=== PATIENT | male | born 1970 | race Caucasian/White ===

== ENCOUNTER 2016-09-25 17:37 | Emergency (ER) | payer OTHER ==
[~2016-09-25] VITALS: Ht 190.5 cm; Wt 121.7 kg
[2016-09-25 17:42] VITALS: TEMP 36.8; Ht 190.5 cm; Wt 121.7 kg
[2016-09-25] MEDS ORDERED: MULT-106 PO (18:18)
[2016-09-25] MEDS ORDERED: GLIP5TAB11 PO (18:18)
[2016-09-25] MEDS ORDERED: ATOR-24 PO (18:18)
[2016-09-25] MEDS ORDERED: METF-841 PO (18:18)
[2016-09-25] MEDS ORDERED: LOSA50TA54 PO (18:18)
[2016-09-25] MEDS ORDERED: IBUPROFEN 800 MG TAB PO STA (18:23)
--- NOTE | 2016-09-25 19:16 | DIAGNOSTIC IMAGING REPORT ---
RIGHT FOOT 3 VIEWS CLINICAL HISTORY: Fall with right lateral foot pain and swelling. FINDINGS: 3 views of the right foot are obtained. No prior studies are available for comparison at the time of dictation. The skeletal structures are well mineralized. There is an age indeterminant distracted avulsion fracture at the base of the fifth metatarsal with overlying soft tissue edema. No additional fracture is seen. The joint spaces of the foot are well-maintained. Degenerative spurring is seen along the dorsal aspect of the tarsal bones. There is a large os trigonum, and a large plantar calcaneal enthesophyte is noted. IMPRESSION: There is an age indeterminant avulsion fracture at the base of the fifth metatarsal with overlying soft tissue edema. Although the fragment appears corticated, this is likely acute given the location of the patient's pain Electronically signed by: Mack Perez M.D. 09/25/2016 7:15 PM Dictated Date/Time: 09/25/2016 7:12 PM
--- NOTE | 2016-09-25 19:38 | EMERGENCY ROOM VISIT NOTE ---
ED Visit Note First contact with patient: 18:07 CHIEF COMPLAINT: Foot pain HISTORY OF PRESENT ILLNESS: This 46-year-old male patient presents to the emergency department strict complaining of swelling and pain in the lateral right foot after an injury today. The patient states that he was spotting for gymnastics and stepped off the edge of the mat onto a lower level, he estimates approximately 2 feet, landing on the outside of his foot with immediate pain. The patient rates the pain as aching and 8/10. The patient has not taken any medication for relief of the pain. The patient is able to walk, but states this greatly increases the pain. No numbness or weakness. No knee or ankle pain. There are no lacerations of the foot. The patient is able to move all of their toes and their ankle without pain. No previous fracture to this foot. REVIEW OF SYSTEMS: GENERAL: A 6 system review of systems was completed with positives and pertinent negatives in the HPI. ALLERGIES: See chart MEDICATIONS: See chart PMH: See chart SOCIAL HISTORY: See chart PHYSICAL EXAM: Vital Signs: Reviewed Nurse's notes, vital signs stable. GENERAL : Pleasant and cooperative, in no acute distress, but appears in pain, well- developed, well-nourished. MUSCULOSKELATAL: There is no visual deformity of the right lateral foot. There is no erythema and no ecchymosis. There is no warmth. There is tenderness and swelling over the lateral aspect of the right foot corresponding to the proximal fifth metatarsal. There is no tenderness over the lateral or medial malleolus. No tenderness of the tib/fib. The range of motion of the right foot is slightly limited secondary to pain. There is no tenderness over the plantar fascia. The skin is intact and there are no lacerations or puncture wounds. Dorsalis pedis pulse 2+. Capillary refill less than 2 seconds. IMAGING: RIGHT FOOT 3 VIEWS CLINICAL HISTORY: Fall with right lateral foot pain and swelling. FINDINGS: 3 views of the right foot are obtained. No prior studies are available for comparison at the time of dictation. The skeletal structures are well mineralized. There is an age indeterminant distracted avulsion fracture at the base of the fifth metatarsal with overlying soft tissue edema. No additional fracture is seen. The joint spaces of the foot are well-maintained. Degenerative spurring is seen along the dorsal aspect of the tarsal bones. There is a large os trigonum, and a large plantar calcaneal enthesophyte is noted. IMPRESSION: There is an age indeterminant avulsion fracture at the base of the fifth metatarsal with overlying soft tissue edema. Although the fragment appears corticated, this is likely acute given the location of the patient's pain EMERGENCY DEPARTMENT COURSE: I examined the patient. Differential diagnosis includes fracture, dislocation, sprain/strain, contusion. An X-ray of the right foot was reviewed by myself and radiologist and reveals probable acute avulsion fracture of the proximal fifth metatarsal. By my read, there may also be a hairline fracture through the proximal end of the fifth metatarsal. The patient was placed in a postop shoe and instructed on the use of crutches. Patient was provided with referral and contact information for orthopedics and instructed to follow-up. The patient was discharged home in good condition. Medication Reconciliation: I attest that I have personally reviewed the patient' s current medication list. Blood pressure screening: The patient was found to have an elevated blood pressure and was referred to their primary doctor for recheck and further treatment. Current/Historical Medications Scheduled Atorvastatin (Lipitor), 40 MG PO DAILY Glipizide (Glucotrol), 5 MG PO BID Losartan Potassium (Cozaar), 50 MG PO DAILY Metformin HCl (Metformin HCl ER), 1,000 MG PO BID Multiple Vitamins W/ Minerals (One Daily Mens), 1 TAB PO DAILY Allergies Coded Allergies: No Known Allergies (Unverified , 09/25/16) Vital Signs Date Time Temp Pulse Resp B/P (MAP) Pulse Ox O2 Delivery O2 Flow Rate FiO2 09/25/16 20:05 80 18 130/86 96 09/25/16 17:42 36.8 91 18 140/93 95 Room Air Medications Administered Medications (Trade) Dose Ordered Sig/Shannon Route Start Time Stop Time Status Last Admin Dose Admin Ibuprofen (Motrin Tab) 800 mg NOW STAT PO 09/25/16 18:23 09/25/16 18:25 DC 09/25/16 18:23 800 MG Departure Information Impression Primary Impression: Fracture of fifth metatarsal bone of right foot Dispostion Home / Self-Care Condition GOOD Referrals Chaka Black D.O. Patient Instructions My [facility] [employer] Additional Instructions Ice and elevation for the next 48 hrs. Ibuprofen 600mg and Tylenol 1000 mg every 6-8 hours for the pain. Avoid weight bearing and use crutches and post-op shoe until the pain subsides and you can walk without a limp. Follow up with the orthopedic surgeon in the next week for further management of your fracture. Problem Qualifiers Primary Impression: Fracture of fifth metatarsal bone of right foot Encounter type: initial encounter Fracture type: closed Fracture alignment : nondisplaced Qualified Codes: S92.354A - Nondisplaced fracture of fifth metatarsal bone, right foot, initial encounter for closed fracture
[2016-09-25 20:05] VITALS: BP 130/86; PULSE 80; O2SAT 96
== END 2016-09-25 19:58 | disposition home or self-care (01) ==
LOC: C.EDB 17:39 → C.EDD 19:58
DX: S92.351A Displaced fracture of fifth metatarsal bone, right foot, initial encounter for closed fracture (principal); W17.89XA Other fall from one level to another, initial encounter; Y93.43 Activity, gymnastics; Z79.4 Long term (current) use of insulin; Z79.899 Other long term (current) drug therapy